=== PATIENT | male | born 1990 | race American Indian/Alaskan Native ===

== ENCOUNTER 2025-07-17 15:06 | Emergency (ER) | payer SELFPAY ==
[2025-07-17 15:07] VITALS: BP 112/90
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
[2025-07-17] MEDS: MOTRIN 600 MG PO (16:43)
== END 2025-07-17 16:58 | disposition home or self-care (01) ==
LOC: EMR 15:06
PROVIDERS: EMERGENCY PHYSICIAN Emergency Medicine; FAMILY PHYSICIAN Family Medicine
DX: G44.319 Acute post-traumatic headache, not intractable (principal); S39.012A Strain of muscle, fascia and tendon of lower back, initial encounter; F17.200 Nicotine dependence, unspecified, uncomplicated; V59.40XA Driver of pick-up truck or van injured in collision with unspecified motor vehicles in traffic accident, initial encounter; Y92.410 Unspecified street and highway as the place of occurrence of the external cause
CPT/HCPCS: 99283